=== PATIENT | female | born 1950 | race Caucasian/White ===

== ENCOUNTER → 2017-06-27 | Outpatient (CLI) | payer MEDICARE ==
[~2017-06-27] MED LIST: ALPR1TAB2 PO; CARI350T PO; DIAZ10TA PO; LEVO175T2 PO; METO25TA35 PO
== END | disposition home or self-care (01) ==
LOC: CFH 07:16
PROVIDERS: ATTEND Family Medicine
DX: Z12.31 Encounter for screening mammogram for malignant neoplasm of breast (principal)
CPT/HCPCS: G0202

== ENCOUNTER → 2020-07-17 | Outpatient (CLI) | payer MEDICARE | END | disposition home or self-care (01) | LOC: EDSTATUS 09:45 → CFH 09:48 | PROVIDERS: ATTEND Family Medicine | DX: Z12.31 Encounter for screening mammogram for malignant neoplasm of breast (principal) | CPT/HCPCS: 77067 ==

== ENCOUNTER → 2021-04-19 | Outpatient (CLI) | payer MEDICARE | END | disposition home or self-care (01) | LOC: CFH 06:52 | PROVIDERS: ATTEND Nurse Practitioner | DX: M51.35 Other intervertebral disc degeneration, thoracolumbar region (principal); M51.36 Other intervertebral disc degeneration, lumbar region; M48.07 Spinal stenosis, lumbosacral region; M43.8X6 Other specified deforming dorsopathies, lumbar region; M47.816 Spondylosis without myelopathy or radiculopathy, lumbar region; M48.061 Spinal stenosis, lumbar region without neurogenic claudication | CPT/HCPCS: 72148 ==